=== PATIENT | male | born 1975 | race Caucasian/White ===

== ENCOUNTER 2016-09-09 17:36 | Emergency (ER) | payer SELFPAY ==
[2016-09-09] MEDS ORDERED: Ketorolac Tromethamine 60 MG/2 ML VIAL ONE (18:24)
[2016-09-09] MEDS ORDERED: methylPREDNISolone Acetate 40 mg/ml Vial ONE (18:31)
--- NOTE | 2016-09-09 20:47 | RAD ---
RIGHT SHOULDER Three views show no fracture, dislocation, or AC joint widening. There are no periarticular calcifi cations. IMPRESSION: No acute findings POS: HOME
== END 2016-09-09 18:51 | disposition home or self-care (01) ==
LOC: BURERS 17:36
DX: M25.511 Pain in right shoulder (principal); F17.220 Nicotine dependence, chewing tobacco, uncomplicated
CPT/HCPCS: 96372; J1030; J1885

== ENCOUNTER 2017-12-26 21:33 | Emergency (ER) | payer OTHER, SELFPAY ==
--- NOTE | 2017-12-27 07:32 | RAD ---
RIGHT ANKLE 3 VIEWS: DATE: 12/26/17. FINDINGS: No acute fracture was seen. There is lateral soft tissue swelling. There is evidence of old ankle i njury consisting of an old smooth bony density near the tip of the lateral malleolus and a little irr egularity along the interosseous margins of the distal tibia and fibula. The joint surfaces are smoo th. IMPRESSION: Lateral swelling and evidence of old injury. No acute fracture. POS: HOME
== END 2017-12-26 22:14 | disposition home or self-care (01) ==
LOC: BURERS 21:33
DX: S93.401A Sprain of unspecified ligament of right ankle, initial encounter (principal); I10 Essential (primary) hypertension; Z79.899 Other long term (current) drug therapy; X58.XXXA Exposure to other specified factors, initial encounter

== ENCOUNTER 2021-06-18 13:18 | Emergency (ER) | payer OTHER ==
[2021-06-19 15:07] LABS: SARS-CoV-2 PCR by NAA Not Detected (NotDetected)
== END 2021-06-18 14:22 | disposition home or self-care (01) ==
LOC: BURERS 13:18
DX: R53.81 Other malaise (principal); Z20.822 Contact with and (suspected) exposure to COVID-19; I10 Essential (primary) hypertension; Z79.82 Long term (current) use of aspirin
CPT/HCPCS: 99283; U0003; U0005

== ENCOUNTER 2021-07-26 21:28 | Emergency (ER) | payer OTHER ==
[2021-07-26] MEDS ORDERED: TETANUS, DIPHTHERIA TOX,ADULT (TDVAX) 0.5 ML VIAL IM ONE (21:42)
[2021-07-26] MEDS ORDERED: Bacitracin 1 PK ONE (22:04)
[2021-07-26] MEDS ORDERED: Ibuprofen 800 MG TAB ONE (22:12)
== END 2021-07-26 22:05 | disposition home or self-care (01) ==
LOC: BURERS 21:28
DX: S63.641A Sprain of metacarpophalangeal joint of right thumb, initial encounter (principal); I10 Essential (primary) hypertension; Z79.899 Other long term (current) drug therapy; Z79.82 Long term (current) use of aspirin; W01.0XXA Fall on same level from slipping, tripping and stumbling without subsequent striking against object, initial encounter
CPT/HCPCS: 29125; 90471; 90714

== ENCOUNTER 2021-07-31 19:08 | Emergency (ER) | payer OTHER ==
[2021-07-31] MEDS ORDERED: HYDROcodone/Acetaminophen 10/325 mg Tablet ONE (21:12)
[2021-07-31] MEDS ORDERED: Ibuprofen 800 MG TAB ONE (21:12)
== END 2021-07-31 21:15 | disposition home or self-care (01) ==
LOC: BURERS 19:08
DX: S63.641A Sprain of metacarpophalangeal joint of right thumb, initial encounter (principal); Z79.899 Other long term (current) drug therapy; I10 Essential (primary) hypertension
CPT/HCPCS: 99283

== ENCOUNTER 2021-09-06 18:32 | Emergency (ER) | payer OTHER ==
[2021-09-06] MEDS ORDERED: Ketorolac Tromethamine 30 MG/ML VIAL ONE (19:16)
[2021-09-06] MEDS ORDERED: HYDROcodone/Acetaminophen 10/325 mg Tablet ONE ×2 (19:16→22:03)
[2021-09-06 19:31] LABS: #Basophils 0.1 thou/uL (0.0-0.2); #Eosinphils 0.6 thou/uL (0.0-0.7); #Lymphocytes 2.2 thou/uL (1.20-3.40); #Monocytes 0.8 thou/uL (0.11-0.59); #Neutrophils 5.3 thou/uL (1.40-6.50); %Eosinophils 6.9 % (0.0-10.0); %Lymphocytes 24.5 % (21.0-51.0); %Monocytes 9.2 % (0.0-10.0); %Neutrophils 58.5 % (42.0-75.0); Hemoglobin 14.1 g/dL (14.0-18.0); Mean Corpuscular Hemoglobin 33.9 pg (27.0-31.0); Mean Corpuscular Volume 94.2 fL (78.0-98.0); Platelet Count 215 thou/uL (130-400); RBC Distribution Width 12.5 % (11.5-14.5); Red Blood Cell (RBC) Count 4.17 mill/uL (4.70-6.10)
[2021-09-06 19:46] LABS: ALT (SGPT) 42 U/L (8-55); AST (SGOT) 34 U/L (5-34); Albumin 4.2 g/dL (3.5-5.0); Alkaline Phosphatase 42 U/L (40-110); Anion Gap 20 mmol/L (10-20); BUN (Urea Nitrogen) 11 mg/dL (8.9-20.6); Bilirubin, Total 0.5 mg/dL (0.2-1.2); CRP (Inflammatory) 0.93 mg/dL (= or < 0.5); Calc. Creatinine Clearance 0 mL/min (70-130); Calcium 8.9 mg/dL (7.8-10.44); Carbon Dioxide 21 mmol/L (22-29); Chloride 99 mmol/L (98-107); Globulin 2.6 g/dL (2.4-3.5); Glucose 100 mg/dL (70-105); Potassium 3.3 mmol/L (3.5-5.1); Protein, Total 6.8 g/dL (6.0-8.3); Sodium 137 mmol/L (136-145)
[2021-09-06] MEDS ORDERED: cefTRIAXone\\ROCEPHIN 2 GM VIAL ONE (19:54)
[2021-09-06] MEDS ORDERED: Sodium Chloride 0.9% 100 ML ONE (19:55)
== END 2021-09-06 22:10 | disposition home or self-care (01) ==
LOC: BURERS 18:32
DX: L03.114 Cellulitis of left upper limb (principal); I10 Essential (primary) hypertension; Z79.82 Long term (current) use of aspirin; Z79.899 Other long term (current) drug therapy
CPT/HCPCS: 80053; 85025; 86140; 96365; 96375; J0696; J1885; J3370; J3490

== ENCOUNTER 2022-02-27 16:15 | Emergency (ER) | payer OTHER ==
[2022-02-27] MEDS ORDERED: Ketorolac Tromethamine 60 MG/2 ML VIAL ONE (17:01)
== END 2022-02-27 17:38 | disposition home or self-care (01) ==
LOC: BURERS 16:15
DX: M54.42 Lumbago with sciatica, left side (principal); I10 Essential (primary) hypertension
CPT/HCPCS: 96372; 99283; J1885

== ENCOUNTER 2023-05-15 13:01 | Emergency (ER) | payer OTHER, SELFPAY | END 2023-05-15 13:30 | disposition home or self-care (01) | LOC: BURERS 13:01 | DX: J11.1 Influenza due to unidentified influenza virus with other respiratory manifestations (principal); I10 Essential (primary) hypertension | CPT/HCPCS: 99283 ==

== ENCOUNTER 2024-03-27 08:32 | Emergency (ER) | payer OTHER ==
[2024-03-27] MEDS ORDERED: Cyclobenzaprine 10 MG TAB ONE (09:19)
[2024-03-27] MEDS ORDERED: Ketorolac Tromethamine 30 MG (1 mL) VIAL ONE (09:20)
== END 2024-03-27 09:32 | disposition home or self-care (01) ==
LOC: BURERS 08:32
DX: S39.012A Strain of muscle, fascia and tendon of lower back, initial encounter (principal); I10 Essential (primary) hypertension; X50.0XXA Overexertion from strenuous movement or load, initial encounter; Y99.0 Civilian activity done for income or pay
CPT/HCPCS: 96372; 99283; J1885